=== PATIENT | female | born 1965 | race Caucasian/White ===

== ENCOUNTER → 2020-06-29 17:39 | Outpatient (CLI) | payer BC, SELFPAY ==
--- NOTE | ~2020-06-29 | XR_ITS ---
EXAMINATION: XR cervical spine 4-5V EXAM DATE: 06/29/2020 18:09 INDICATION: Posterior neck pain. TECHNIQUE: Cervical spine frontal, lateral, lateral swimmers, and open-mouth odontoid projections. C omparison is made to prior examination from 03/02/2018. FINDINGS: There is moderate disc disease at C6-7, mild at C4-5 and 5-6. There is mild to moderate midcervical u ncovertebral joint and facet joint arthropathy. The odontoid process is intact. The lateral masses o f C1 line up with C2. Prevertebral soft tissue and pre-dens space are within normal limits. The soft tissue is unremarkable. Lung apices unremarkable. IMPRESSION: Mild to moderate midcervical spondylosis. No acute findings. Reviewed, dictated and finalized at location A. [employer]
== END ==
PROVIDERS: PCP Internal Medicine; Visit Provider Internal Medicine
DX: M54.2 Cervicalgia (principal); M47.812 Spondylosis without myelopathy or radiculopathy, cervical region
CPT/HCPCS: 72050